=== PATIENT | female | born 1995 | race Caucasian/White ===

== ENCOUNTER 2017-09-06 01:09 | Outpatient (CLI) | payer OTHER ==
[2017-09-06 04:13] LABS: ADD UMIC YES; UR ASCORBIC ACID NEGATIVE (NEGATIVE); UR BACTERIA FEW /HPF (NONE SEEN); UR BILIRUBIN (Dip) NEGATIVE (NEGATIVE); UR BLOOD (Dip) NEGATIVE (NEGATIVE); UR CLARITY SLIGHTLY CLOUDY (CLEAR); UR COLOR YELLOW (YELLOW); UR GLUCOSE (Dip) NEGATIVE (NEGATIVE); UR KETONES (Dip) NEGATIVE (NEGATIVE); UR LEUKOCYTE ESTERASE (Dip) 3+ Leu/ul (NEGATIVE); UR MUCUS FEW /HPF (NONE SEEN); UR NITRITE (Dip) NEGATIVE (NEGATIVE); UR RBC 0 /HPF (0-5); UR SPECIFIC GRAVITY (Dip) 1.008 (1.003-1.030); UR SQUAMOUS EPITHELIAL CELL FEW /HPF (FEW); UR TOTAL PROTEIN (Dip) NEGATIVE (NEGATIVE); UR UROBILINOGEN (Dip) NEGATIVE (NEGATIVE); UR WBC 50 /HPF (0-5)
== END 2017-09-06 05:16 | disposition home health service (06) ==
LOC: OBT 01:09 → L-D 01:10 → OBT 05:16
DX: O26.892 Other specified pregnancy related conditions, second trimester (principal); Z3A.27 27 weeks gestation of pregnancy; R10.2 Pelvic and perineal pain
CPT/HCPCS: 76815; 76817; 76818; 81001

== ENCOUNTER 2017-11-27 10:06 | Inpatient (IN) | payer OTHER ==
[2017-11-27] MEDS ORDERED: CARBOPROST 250 MCG INJ IM (10:30)
[2017-11-27] MEDS ORDERED: OXYTOCIN 30 UNITS/LR 500 ML IV (10:30)
[2017-11-27] MEDS ORDERED: LIDOCAINE 1% (MPF) 30 ML INJ INJ (10:30)
[2017-11-27] MEDS ORDERED: MISOPROSTOL 200 MCG TAB PR (10:30)
[2017-11-27] MEDS ORDERED: METHYLERGONOVINE 0.2 MG INJ IM (10:30)
[2017-11-27 11:42] LABS: ADD MAN DIFF? NO
[2017-11-27 11:44] LABS: BASOPHILS % 0.1 % (0.0-2.0); EOSINOPHILS # 0.1 10^3/ul (0.0-0.5); EOSINOPHILS % 0.8 % (0.0-7.0); HEMATOCRIT 38.1 % (37.0-47.0); HEMOGLOBIN 12.3 g/dl (12.0-16.0); LYMPHOCYTES # 2.3 10^3/ul (0.8-2.9); LYMPHOCYTES % 25.8 % (18.0-55.0); MEAN CORPUSCULAR HEMOGLOBIN 26.8 pg (29.0-33.0); MEAN CORPUSCULAR HGB CONC 32.3 g/dl (32.0-37.0); MEAN PLATELET VOLUME 10.6 fl (7.4-10.4); MONOCYTE # 0.5 10^3/ul (0.3-0.9); MONOCYTES % 5.8 % (0.0-13.0); NEUTROPHIL # 5.9 10^3/ul (1.6-7.5); NEUTROPHILS % 67.2 % (30.0-74.0); PLATELET COUNT 219 10^3/UL (140-415); RED BLOOD COUNT 4.59 10^6/ul (4.20-5.40); RED CELL DISTRIBUTION WIDTH 14.4 % (11.5-14.5)
[2017-11-27 11:44] LABS: WHITE BLOOD COUNT 8.8 10^3/ul (4.8-10.8)
[2017-11-27] MEDS: LACTATED RINGER'S 1,000 ML IV* ×3 (11:50→20:35)
[2017-11-27] MEDS: AMPICILLIN 2 GM/NS (PMX) 100 ML IV (11:50)
[2017-11-27 12:05] LABS: INR 1.03; PROTIME 13.6 Sec (11.9-14.9); PT RATIO 1.1
[2017-11-27 12:06] LABS: PARTIAL THROMBOPLASTIN TIME 25.8 Sec (23.0-35.0)
[2017-11-27 13:44] LABS: AMPHETAMINE/METHAMPHETAMINE Negative (NEGATIVE); BARBITURATES Negative (NEGATIVE); BENZODIAZEPINES Negative (NEGATIVE); CANNABINOIDS Negative (NEGATIVE); COCAINE Negative (NEGATIVE); OPIATES Negative (NEGATIVE)
[2017-11-27 13:55] LABS: HEPATITIS B SURFACE ANTIGEN NEGATIVE (NEGATIVE)
[2017-11-27 15:06] LABS: ALANINE AMINOTRANSFERASE 11 IU/L (13-69); ALBUMIN 2.7 g/dl (3.3-4.9); ALBUMIN/GLOBULIN RATIO 0.84; ALKALINE PHOSPHATASE 156 IU/L (42-121); ANION GAP 12 (8-16); ASPARTATE AMINO TRANSFERASE 24 IU/L (15-46); BILIRUBIN,INDIRECT 0.3 mg/dl (0-1.1); BILIRUBIN,TOTAL 0.3 mg/dl (0.2-1.3); BLOOD UREA NITROGEN 2 mg/dl (7-20); CALCIUM 9.7 mg/dl (8.4-10.2); CARBON DIOXIDE 23 mmol/L (21-31); CHLORIDE 108 mmol/L (97-110); CREATININE 0.39 mg/dl (0.44-1.00); GLUCOSE 84 mg/dl (70-220); POTASSIUM 3.9 mmol/L (3.5-5.1); SODIUM 139 mmol/L (135-144); TOTAL PROTEIN 5.9 g/dl (6.1-8.1); URIC ACID 5.8 mg/dl (3.1-7.9)
[2017-11-27] MEDS: DINOPROSTONE 10 MG VAG SUPP VAG (15:11)
[2017-11-27] MEDS: AMPICILLIN 1 GM/NS (PMX) 50 ML IV ×3 (15:11→22:42)
[2017-11-27 16:29] LABS: RAPID PLASMA REAGIN NONREACTIVE (NR)
[2017-11-27] MEDS: BUTORPHANOL 2 MG INJ IV (18:12)
[2017-11-27 18:38] LABS: ADD UMIC YES; UR ASCORBIC ACID NEGATIVE (NEGATIVE); UR BACTERIA FEW /HPF (NONE SEEN); UR BILIRUBIN (Dip) NEGATIVE (NEGATIVE); UR BLOOD (Dip) NEGATIVE (NEGATIVE); UR CLARITY CLEAR (CLEAR); UR COLOR STRAW (YELLOW); UR GLUCOSE (Dip) NEGATIVE (NEGATIVE); UR KETONES (Dip) NEGATIVE (NEGATIVE); UR LEUKOCYTE ESTERASE (Dip) 3+ Leu/ul (NEGATIVE); UR NITRITE (Dip) NEGATIVE (NEGATIVE); UR RBC 2 /HPF (0-5); UR SPECIFIC GRAVITY (Dip) 1.005 (1.003-1.030); UR TOTAL PROTEIN (Dip) NEGATIVE (NEGATIVE); UR UROBILINOGEN (Dip) NEGATIVE (NEGATIVE); UR WBC 1 /HPF (0-5)
[2017-11-27] MEDS ORDERED: HYDROmorphONE 0.5 MG/0.5 ML SYG IV ×2 (21:00)
[2017-11-27] MEDS ORDERED: ZOLPIDEM 5 MG TAB PO (21:00)
[2017-11-27] MEDS ORDERED: DIPHENHYDRAMINE 50 MG INJ IV (21:00)
[2017-11-27] MEDS ORDERED: KETOROLAC 30 MG INJ IV (21:00)
[2017-11-27] MEDS ORDERED: NALOXONE (0.4 MG/ML) INJ IV (21:00)
[2017-11-28] MEDS: LACTATED RINGER'S 1,000 ML IV* ×2 (00:10→03:37)
[2017-11-28] MEDS: AMPICILLIN 1 GM/NS (PMX) 50 ML IV ×4 (03:37→14:30)
[2017-11-28] MEDS: FENTAnyl 2MCG/ML-ROPIV 0.2% 100 ML BAG EPI ×2 (04:31→11:09)
[2017-11-28] MEDS: OXYTOCIN 30 UNITS/LR 500 ML IV ×4 (05:17→18:07)
[2017-11-28] MEDS ORDERED: ROPIVACAINE 0.5 % 30 ML VIAL (07:00)
[2017-11-28] MEDS: ONDANSETRON 4 MG INJ IV (10:55)
[2017-11-28] MEDS ORDERED: LIDOCAINE 1% (MPF) 30 ML INJ (12:59)
[2017-11-28] MEDS: LIDOCAINE 0.5% (SDV) 50 ML INJ INFIL (14:04)
[2017-11-28] MEDS: MINERAL OIL LIGHT 10 ML VIAL TOP (14:04)
[2017-11-28] MEDS: IBUPROFEN 600 MG TAB PO ×2 (14:59→18:00)
[2017-11-28] MEDS ORDERED: ONDANSETRON 4 MG INJ IV (17:00)
[2017-11-28] MEDS ORDERED: ACETAMINOPHEN 325 MG TAB PO (17:00)
[2017-11-28] MEDS ORDERED: OXYCODONE/ASPIRIN (4.88/325) TAB PO ×2 (17:00)
[2017-11-28] MEDS ORDERED: DIBUCAINE 1% 30 GM OINT PR (17:00)
[2017-11-28] MEDS: SENNA/DOCUSATE NA (8.6MG/50MG) TAB PO (20:24)
[2017-11-28] MEDS: LABETALOL 100 MG TAB PO (20:24)
[2017-11-28] MEDS: HYDROCODONE/APAP (5/325) TAB PO (20:25)
[2017-11-28] MEDS: BENZOCAINE 20% 56 ML SPRAY TOP (20:30)
[2017-11-28] MEDS: LANOLIN 7 GM TUBE TOP (20:30)
[2017-11-28] MEDS: WITCH HAZEL/GLYCERIN PAD PR (20:30)
[2017-11-28] MEDS ORDERED: LABETALOL 100 MG TAB PO (21:00)
[2017-11-29] MEDS: IBUPROFEN 600 MG TAB PO ×5 (00:28→23:50)
[2017-11-29 08:08] LABS: ADD MAN DIFF? NO
[2017-11-29 08:13] LABS: WHITE BLOOD COUNT 15.3 10^3/ul (4.8-10.8)
[2017-11-29 08:13] LABS: BASOPHILS % 0.2 % (0.0-2.0); EOSINOPHILS # 0.1 10^3/ul (0.0-0.5); EOSINOPHILS % 0.8 % (0.0-7.0); HEMATOCRIT 34.2 % (37.0-47.0); HEMOGLOBIN 10.9 g/dl (12.0-16.0); LYMPHOCYTES # 3.1 10^3/ul (0.8-2.9); LYMPHOCYTES % 20.3 % (18.0-55.0); MEAN CORPUSCULAR HEMOGLOBIN 27.1 pg (29.0-33.0); MEAN CORPUSCULAR HGB CONC 31.9 g/dl (32.0-37.0); MEAN CORPUSCULAR VOLUME 85.1 fl (72.0-104.0); MONOCYTE # 0.9 10^3/ul (0.3-0.9); MONOCYTES % 5.7 % (0.0-13.0); NEUTROPHIL # 11.1 10^3/ul (1.6-7.5); NEUTROPHILS % 72.5 % (30.0-74.0); PLATELET COUNT 172 10^3/UL (140-415); RED BLOOD COUNT 4.02 10^6/ul (4.20-5.40); RED CELL DISTRIBUTION WIDTH 14.6 % (11.5-14.5)
[2017-11-29] MEDS: LABETALOL 100 MG TAB PO ×2 (09:00→21:00)
[2017-11-29] MEDS: SENNA/DOCUSATE NA (8.6MG/50MG) TAB PO ×2 (09:38→21:00)
[2017-11-29] MEDS: HYDROCODONE/APAP (5/325) TAB PO (09:43)
[2017-11-30] MEDS: IBUPROFEN 600 MG TAB PO ×2 (06:09→12:22)
[2017-11-30] MEDS: MEASLES,MUMPS,RUBELLA VACCINE INJ SC* (09:00)
[2017-11-30] MEDS: SENNA/DOCUSATE NA (8.6MG/50MG) TAB PO (09:00)
[2017-11-30] MEDS: LABETALOL 100 MG TAB PO (09:29)
== END 2017-11-30 15:00 | disposition home or self-care (01) | DRG 807 ==
LOC: PP1 11-28 16:27 → L-D 10:06
PROVIDERS: Obstetrics & Gynecology
PROC: 3E0P7VZ Introduction of Hormone into Female Reproductive, Via Natural or Artificial Opening (ICD-10-PCS; 2017-11-27)
PROC: 3E033VJ Introduction of Other Hormone into Peripheral Vein, Percutaneous Approach (ICD-10-PCS; 2017-11-27)
PROC: 10E0XZZ Delivery of Products of Conception, External Approach (ICD-10-PCS; principal; 2017-11-28)
PROC: 0HQ9XZZ Repair Perineum Skin, External Approach (ICD-10-PCS; 2017-11-28)
DX: O10.02 Pre-existing essential hypertension complicating childbirth (principal); Z37.0 Single live birth; O70.0 First degree perineal laceration during delivery; O69.81X0 Labor and delivery complicated by cord around neck, without compression, not applicable or unspecified; Z3A.38 38 weeks gestation of pregnancy
CPT/HCPCS: 62319; 80053; 80307; 81001; 84560; 85025; 85384; 85610; 85730; 86592; 86850; 86900; 86901; 87340